=== PATIENT | male | born 1960 | race Caucasian/White ===

== ENCOUNTER 2019-12-29 08:55 | Observation (INO) | payer OTHER ==
[~2019-12-29] VITALS: Ht 177.8 cm; Wt 108.0 kg
--- NOTE | 2019-12-29 09:02 | Emergency Department Note ---
History of Present Illnes History of Present Illness History of Present Illness 59-year-old male arrives to the ED with complaints of left lower quadrant abdominal pain. Patient states pain started today and is unbearable. Patient denies history of this pain in the past. Historian: Patient Onset (how long ago): day(s) Radiation: Reports non-radiation Onset quality: sudden Duration (how long): hour(s) Timing of current episode: constant Progression: worsening Chronicity: new Context: Denies recent illness, Denies trauma/injury Relieving factors: none Associated symptoms: Reports denies other symptoms Past Medical/Family History Physician Review I have reviewed the patient's past medical and family history. Any updates have been documented here. Past Medical History Recent Fever: No Clinical Suspicion of Infectio: No New/Unexplained Change in Ment: No Social History Smoking Cessation: Never Smoker Counseling Performed: No Alcohol Use: Social Any Illegal Drug Use: No Review of Systems Review of Systems Constitutional: Reports no symptoms EENTM: Reports no symptoms Cardiovascular: Reports no symptoms Respiratory: Reports no symptoms Gastrointestinal: Reports as per HPI, Reports abdominal pain Genitourinary: Reports no symptoms Musculoskeletal: Reports no symptoms Integumentary: Reports no symptoms Neurological: Reports no symptoms Psychological: Reports no symptoms Endocrine: Reports no symptoms Hematological/Lymphatic: Reports no symptoms Physical Exam Related Data Allergies: Coded Allergies: codeine (Verified Allergy, Intermediate, FEELING OF HEART ATTACK, 12/29/19) Vital signs reviewed: Yes Physical Exam CONSTITUTIONAL Constitutional: Present well-developed, Present obese, Present ill appearing HENT HENT: Present normocephalic, Present atraumatic, Present oropharynx clear/moist, Present nose normal HENT L/R: Present left ext ear normal, Present right ext ear normal EYES Eyes: Reports PERRL, Reports conjunctivae normal NECK Neck: Present ROM normal PULMONARY Pulmonary: Present effort normal, Present breath sounds normal CARDIOVASCULAR Cardiovascular: Present regular rhythm, Present heart sounds normal, Present capillary refill normal, Present normal rate GASTROINTESTINAL Abdominal: Present soft, Present bowel sounds normal, Present tender GENITOURINARY Genitourinary: Present exam deferred SKIN Skin: Present warm, Present dry MUSCULOSKELETAL Musculoskeletal: Present ROM normal NEUROLOGICAL Neurological: Present alert, Present oriented x 3, Present no gross motor or sensory deficits PSYCHOLOGICAL Psychological: Present mood/affect normal, Present judgement normal Results Laboratory Lab results reviewed: Yes Laboratory comments Laboratory Tests Test 12/29/19 10:00 White Blood Count 5.52 x10e3/uL (4.8-10.8) Red Blood Count 4.95 x10e6/uL (4.3-5.7) Hemoglobin 15.2 g/dL (14.0-18.0) Hematocrit 43.4 % (38.2-49.6) Mean Corpuscular Volume 87.7 fL (81-99) Mean Corpuscular Hemoglobin 30.7 pg (28-32) Mean Corpuscular Hemoglobin Concent 35.0 g/dL (31-35) Red Cell Distribution Width 12.1 % (11.7-14.4) Platelet Count 182 x10e3/uL (140-360) Neutrophils (%) (Auto) 60.1 % (38.7-80.0) Lymphocytes (%) (Auto) 27.5 % (18.0-39.1) Monocytes (%) (Auto) 7.8 % (4.4-11.3) Eosinophils (%) (Auto) 3.3 % (0.0-6.0) Basophils (%) (Auto) 0.9 % (0.0-1.0) Neutrophils # (Auto) 3.3 (2.1-6.9) Lymphocytes # (Auto) 1.5 (1.0-3.2) Monocytes # (Auto) 0.4 (0.2-0.8) Eosinophils # (Auto) 0.2 (0.0-0.4) Basophils # (Auto) 0.1 (0.0-0.1) Absolute Immature Granulocyte (auto 0.02 x10e3/uL (0-0.1) Sodium Level 137 mmol/L (136-145) Potassium Level 3.8 mmol/L (3.5-5.1) Chloride Level 103 mmol/L (98-107) Carbon Dioxide Level 20 mmol/L (22-29) Anion Gap 17.8 mmol/L (8-16) Blood Urea Nitrogen 18 mg/dL (7-26) Creatinine 0.98 mg/dL (0.72-1.25) Estimat Glomerular Filtration Rate > 60 ML/MIN (60-) BUN/Creatinine Ratio 18 (6-25) Glucose Level 95 mg/dL (74-118) Lactic Acid Level 1.7 mmol/L (0.5-2.0) Calcium Level 8.6 mg/dL (8.4-10.2) Total Bilirubin 0.6 mg/dL (0.2-1.2) Aspartate Amino Transf (AST/SGOT) 21 IU/L (5-34) Alanine Aminotransferase (ALT/SGPT) 20 IU/L (0-55) Alkaline Phosphatase 81 IU/L (40-150) Creatine Kinase 404 IU/L (30-200) Creatine Kinase MB 2.00 ng/mL (0-5.0) Troponin I < 0.001 ng/mL (0-0.300) Total Protein 7.2 g/dL (6.5-8.1) Albumin 4.3 g/dL (3.5-5.0) Globulin 2.9 g/dL (2.3-3.5) Albumin/Globulin Ratio 1.5 (0.8-2.0) Lipase 21 U/L (8-78) Imaging Imaging results reviewed: Yes Impressions IMPRESSION: Cholelithiasis with a 9 mm gallstone at the gallbladder neck. No CT evidence of cholecystitis. No additional acute findings in the chest abdomen or pelvis. Scattered 3 to 4 mm right middle lobe pulmonary nodules. If the patient is low risk, no further follow-up imaging as this area. If the patient is high risk, follow-up chest CT in 12 months is optional. Signed by: Marcie Reddy MD on 12/29/2019 12:21 PM Assessment & Plan Medical Decision Making MDM 59-year-old male arrives to the ED with complaints of left lower quadrant abdominal pain that began suddenly. Patient markedly uncomfortable on exam and ill-appearing. Patient require central line placement for IV access. Pt's imaging concerning for acute gustavo- general surg and GI consulted. Assessment & Plan Final Impression: (1) Acute cholecystitis Depart Disposition: HOME, SELF-assisted Meds No Active Prescriptions or Reported Meds JUAN CARLOS MONTIEL DO Dec 29, 2019 09:02
[2019-12-29] MEDS ORDERED: ONDANSETRON HCL INJ 2MG/ML 2ML 2 MG/ML VIAL IV STA (09:09)
[2019-12-29] MEDS ORDERED: SODIUM CHLORIDE 0.9% 1000ML 1,000 ML IV STA (09:09)
[2019-12-29] MEDS ORDERED: MORPHINE SULFATE INJ 4 MG/ML INJ 1ML IV PRN (09:15)
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
[2019-12-29] MEDS ORDERED: FENTANYL CITRATE/PF 100MCG/2 ML INJ IV ONE (10:15)
[2019-12-29 10:17] LABS: BASOPHILS # (AUTO) 0.1 (0.0-0.1); BASOPHILS % 0.9 % (0.0-1.0); EOSINOPHILS # (AUTO) 0.2 (0.0-0.4); EOSINOPHILS % 3.3 % (0.0-6.0); HEMATOCRIT 43.4 % (38.2-49.6); HEMOGLOBIN 15.2 g/dL (14.0-18.0); LYMPHOCYTES # (AUTO) 1.5 (1.0-3.2); LYMPHOCYTES % 27.5 % (18.0-39.1); MEAN CORPUSCULAR HEMOGLOBIN 30.7 pg (28-32); MEAN CORPUSCULAR VOLUME 87.7 fL (81-99); MONOCYTES # (AUTO) 0.4 (0.2-0.8); MONOCYTES % 7.8 % (4.4-11.3); NEUTROPHILS # (AUTO) 3.3 (2.1-6.9); NEUTROPHILS % 60.1 % (38.7-80.0); PLATELET COUNT 182 x10e3/uL (140-360); RED BLOOD COUNT 4.95 x10e6/uL (4.3-5.7); RED CELL DISTRIBUTION WIDTH 12.1 % (11.7-14.4)
[2019-12-29 10:36] LABS: ALANINE AMINOTRANSFERASE 20 IU/L (0-55); ALBUMIN 4.3 g/dL (3.5-5.0); ALBUMIN/GLOBULIN RATIO 1.5 (0.8-2.0); ALKALINE PHOSPHATASE 81 IU/L (40-150); ANION GAP 17.8 mmol/L (8-16); BLOOD UREA NITROGEN 18 mg/dL (7-26); BUN/CREATININE RATIO 18 (6-25); CALCIUM 8.6 mg/dL (8.4-10.2); CARBON DIOXIDE 20 mmol/L (22-29); CHLORIDE 103 mmol/L (98-107); CREATINE KINASE 404 IU/L (30-200); CREATININE, SERUM 0.98 mg/dL (0.72-1.25); EST GLOMERULAR FILTRATION RATE > 60 ML/MIN (60-); GLUCOSE 95 mg/dL (74-118); POTASSIUM 3.8 mmol/L (3.5-5.1); SODIUM 137 mmol/L (136-145)
[2019-12-29] MEDS ORDERED: PIPER-TAZ 3.375 GM 50 ML IV STA (10:43)
--- NOTE | 2019-12-29 12:24 | Diagnostic Imaging Report ---
EXAM: CT Chest, Abdomen and Pelvis WITH intravenous contrast INDICATION: Abdominal pain radiating to chest COMPARISON: None. TECHNIQUE: The chest, abdomen and pelvis were scanned utilizing a multidetector helical scanner from the thoracic inlet to the pubic symphysis following administration of IV contrast. Coronal and sagittal reformations were obtained. Scan was performed during portal venous phase. IV CONTRAST: 100cc Isovue 370 ORAL CONTRAST: Water COMPLICATIONS: None RADIATION DOSE: Total DLP: 1056 mGy*cm Dose modulation, iterative reconstruction, and/or weight based adjustment of the mA/kV was utilized to reduce the radiation dose to as low as reasonably achievable. FINDINGS: LINES/ TUBES: None. LUNGS AND AIRWAYS: The central airways are patent. No focal consolidation or pulmonary edema. Mild dependent subsegmental atelectasis of the right and left lower lobe. Scattered 3 to 4 mm pulmonary nodules in the right middle lobe. PLEURA: The pleural spaces are clear. HEART AND MEDIASTINUM: The thyroid gland is normal. No mediastinal, hilar or axillary lymphadenopathy. The heart is normal in size.. There is no pericardial effusion. HEPATOBILIARY: No focal liver lesions. No biliary ductal dilation. 9 mm gallstone at the gallbladder neck. No CT evidence of cholecystitis. SPLEEN: No splenomegaly. PANCREAS: No focal masses or ductal dilatation. ADRENALS: No adrenal nodules. KIDNEYS/URETERS: No hydronephrosis, stones, or solid mass lesions. PELVIC ORGANS/BLADDER: Unremarkable. PERITONEUM / RETROPERITONEUM: No free air or fluid. LYMPH NODES: No lymphadenopathy. VESSELS: Unremarkable. GI TRACT: No abnormal bowel thickening. No bowel obstruction. Normal appendix. BONES AND SOFT TISSUES: No acute osseous injury. No suspicious lytic or blastic lesions. Grade 1 retrolisthesis at L5-S1. IMPRESSION: Cholelithiasis with a 9 mm gallstone at the gallbladder neck. No CT evidence of cholecystitis. No additional acute findings in the chest abdomen or pelvis. Scattered 3 to 4 mm right middle lobe pulmonary nodules. If the patient is low risk, no further follow-up imaging as this area. If the patient is high risk, follow-up chest CT in 12 months is optional. Signed by: Marcie Reddy MD on 12/29/2019 12:21 PM
[2019-12-29] MEDS ORDERED: KETOROLAC TROMETHAMINE 30 MG/ML VIAL IV STA (12:28)
[2019-12-29] MEDS: HYDROMORPHONE 1MG/1ML INJ IV PRN ×3 (12:53→22:54)
[2019-12-29] MEDS ORDERED: SODIUM CHLORIDE 0.9% 50ML 50 ML ONE (13:59)
[2019-12-29] MEDS ORDERED: IOPAMIDOL 370 MG/ML 200 ML INFUS..BTL INJ ONE (14:00)
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
--- NOTE | 2019-12-29 16:30 | NUR ---
PT TO THE FLOOR FROM ER. VITALS WNL. PT DENIES NEEDS AT THIS TIME.
[2019-12-29 16:45] VITALS: BP 157/79
[2019-12-29] MEDS ORDERED: ACETAMINOPHEN 325 MG TAB PO PRN (17:00)
[2019-12-29] MEDS ORDERED: HYDRALAZINE HCL 20 MG/ML VIAL IV PRN (17:00)
[2019-12-29 17:24] VITALS: BP 156/82
--- NOTE | 2019-12-29 17:36 | NUR ---
CONSULT CALLED TO DR. CARMEN ANSWERING SERVICE. AMANDEEP RECORDED.
[2019-12-29] MEDS: SODIUM CHLORIDE 0.9% 1000ML 1,000 ML IV SCH (18:04)
--- NOTE | 2019-12-29 19:12 | Consultation ---
DATE OF CONSULTATION: 12/29/2019 CHIEF COMPLAINT: Abdominal pain. HISTORY OF PRESENT ILLNESS: The patient is a 59-year-old male with 1-day history of pain in the epigastric regions with some nausea. No vomiting. No fever, chills, or diarrhea. No prior episode of pain. PAST MEDICAL HISTORY: Positive for hypertension and hyperlipidemia. PAST SURGICAL HISTORY: Positive for nasal and foot surgery. ALLERGIES: THE PATIENT HAS ALLERGIC REACTION TO CODEINE. SOCIAL HABITS: He does not smoke or drink. REVIEW OF SYSTEMS: No chest pain, shortness of breath, cough, or fevers. PHYSICAL EXAMINATION: VITAL SIGNS: Stable. He is afebrile. He is awake and alert in moderate discomfort. HEENT: Sclerae anicteric. NECK: Supple. LUNGS: Clear. HEART: Regular rate and rhythm. ABDOMEN: Soft with some guarding in the epigastrium with no rebound. EXTREMITIES: No cyanosis or edema. LABORATORY DATA: White cell count 5.5, hemoglobin of 15, and platelet count 182,000. Creatinine is 0.9. Liver function tests unremarkable. Lipase 21. CT of the abdomen revealed gallstones with 9 mm at the neck. No CT evidence of cholecystitis. ASSESSMENT: Abdominal pain with gallstones, likely cholecystitis. PLAN: HIDA scan will be ordered to confirm cholecystitis. We will follow. Artur Villatoro MD DNJohn/MODL /[id number]
[2019-12-29] MEDS ORDERED: CRESTOR10 MG (19:19)
[2019-12-29] MEDS ORDERED: AMLODIPINE BESYL5 MG PO (19:19)
[2019-12-29 20:00] VITALS: BP 148/88
[2019-12-29] MEDS: ONDANSETRON HCL INJ 2MG/ML 2ML 2 MG/ML VIAL IV PRN (21:30)
[2019-12-30] VITALS (8 sets, daily range): BP systolic 133–152; BP diastolic 78–90
[2019-12-30] MEDS: SODIUM CHLORIDE 0.9% 1000ML 1,000 ML IV SCH ×2 (03:19→21:07)
[2019-12-30] MEDS: HYDROMORPHONE 1MG/1ML INJ IV PRN ×2 (03:56→08:19)
[2019-12-30] MEDS: ONDANSETRON HCL INJ 2MG/ML 2ML 2 MG/ML VIAL IV PRN ×2 (03:57→08:19)
[2019-12-30 06:15] LABS: BASOPHILS % 0.2 % (0.0-1.0); EOSINOPHILS % 0.3 % (0.0-6.0); HEMATOCRIT 42.6 % (38.2-49.6); HEMOGLOBIN 14.6 g/dL (14.0-18.0); LYMPHOCYTES # (AUTO) 0.8 (1.0-3.2); LYMPHOCYTES % 7.3 % (18.0-39.1); MEAN CORPUSCULAR HEMOGLOBIN 30.4 pg (28-32); MEAN CORPUSCULAR HGB CONC 34.3 g/dL (31-35); MEAN CORPUSCULAR VOLUME 88.8 fL (81-99); MONOCYTES # (AUTO) 0.8 (0.2-0.8); MONOCYTES % 8.1 % (4.4-11.3); NEUTROPHILS # (AUTO) 8.6 (2.1-6.9); NEUTROPHILS % 83.7 % (38.7-80.0); PLATELET COUNT 170 x10e3/uL (140-360); RED CELL DISTRIBUTION WIDTH 12.2 % (11.7-14.4)
[2019-12-30 06:47] LABS: ALANINE AMINOTRANSFERASE 101 IU/L (0-55); ALBUMIN/GLOBULIN RATIO 1.5 (0.8-2.0); ALKALINE PHOSPHATASE 95 IU/L (40-150); ANION GAP 14.9 mmol/L (8-16); BLOOD UREA NITROGEN 13 mg/dL (7-26); BUN/CREATININE RATIO 16 (6-25); CALCIUM 8.1 mg/dL (8.4-10.2); CARBON DIOXIDE 22 mmol/L (22-29); CHLORIDE 102 mmol/L (98-107); CREATININE, SERUM 0.81 mg/dL (0.72-1.25); EST GLOMERULAR FILTRATION RATE > 60 ML/MIN (60-); GLUCOSE 104 mg/dL (74-118); POTASSIUM 3.9 mmol/L (3.5-5.1); SODIUM 135 mmol/L (136-145)
--- NOTE | 2019-12-30 07:00 | NUR ---
BEDSIDE SHIFT REPORT RECEIVED FORM THE BRAND STRATEGIST RN. EDUCATED PT ABOUT FALL PRECAUTIONS. PT VERBALIZED UNDERSTANDING. CALL LIGHT WITH IN EASY REACH. INSTRUCTED PT TO USE CALL LIGHT FOR ALL THE NEEDS. BED IS LOW AND LOCKED. SIDE RAILS X2.PT DENIES NEEDS AT THIS TIME.
[2019-12-30] MEDS: FAMOTIDINE 20 MG TAB PO SCH ×2 (07:30→15:40)
[2019-12-30] MEDS ORDERED: PIPER-TAZ 3.375 GM 50 ML IV SCH (12:00)
--- NOTE | 2019-12-30 12:15 | NUR ---
PT OFF UNIT TO NUCLEAR MED FOR PROCEDURE.
[2019-12-30] MEDS ORDERED: DEXAMETHASONE SOD PHOS INJ 4 MG/ML VIAL ONE (12:44)
[2019-12-30] MEDS ORDERED: LIDOCAINE HCL 2% LOCAL INJ 5 ML SDV VIAL INJ ONE (12:44)
[2019-12-30] MEDS ORDERED: ROCURONIUM BROMIDE 10 MG/ML 5ML VIAL IV ONE (12:44)
[2019-12-30] MEDS ORDERED: SEVOFLURANE INHAL SOLN 250 ML PEN BTL ONE (12:44)
[2019-12-30] MEDS ORDERED: GLYCOPYRROLATE INJ 0.2 MG/ML VIAL ONE (12:44)
[2019-12-30] MEDS ORDERED: ONDANSETRON HCL INJ 2MG/ML 2ML 2 MG/ML VIAL ONE (12:44)
[2019-12-30] MEDS ORDERED: NEOSTIGMINE 1 MG/ML 10ML VIAL ONE (12:44)
[2019-12-30] MEDS ORDERED: PROPOFOL IV EMULSION 10 MG/ML 20 ML VIAL ONE ×2 (12:44→18:57)
[2019-12-30] MEDS ORDERED: KETOROLAC TROMETHAMINE 30 MG/ML VIAL ONE (12:44)
[2019-12-30] MEDS ORDERED: SUCCINYLCHOLINE CHLORIDE 20 MG/ML 10ML VIAL ONE (12:44)
[2019-12-30] MEDS ORDERED: FENTANYL CITRATE/PF 100MCG/2 ML INJ ONE (13:31)
[2019-12-30] MEDS ORDERED: MIDAZOLAM HCL 2 MG/2 ML VIAL ONE (13:31)
--- NOTE | 2019-12-30 13:40 | NUR ---
CALL RECEIVED FROM NUCLEAR MED. PT NEED PAIN MED MORPHINE PER NUCLEAR MED RN. PAGED DR. HUNTER PER NUCLEAR MED RN AND CONFIRMED THE ORDER OVER THE PHONE.
[2019-12-30] MEDS ORDERED: MORPHINE SULFATE INJ 4 MG/ML INJ 1ML IV PRN (14:00)
--- NOTE | 2019-12-30 15:00 | NUR ---
PT IS BACK TO THE UNIT AFTER PROCEDURE. PT IS AAOX4. DENIES NEEDS AT THIS TIME.
[2019-12-30] MEDS: PIPER-TAZ 3.375 GM 50 ML IV SCH ×2 (15:59→21:07)
--- NOTE | 2019-12-30 17:00 | NUR ---
PT SIGNED CONSENT FOR THE PROCEDURE. PT DENIED FURTHER NEEDS.
[2019-12-30] MEDS ORDERED: BUPIVACAINE HCL 0.5% INJ 30 ML VIAL INJ ONE (17:10)
--- NOTE | 2019-12-30 17:13 | NUR ---
PT OFF UNIT FOR PROCEDURE IN SAFE CONDITION.
--- NOTE | 2019-12-30 17:48 | Diagnostic Imaging Report ---
HIDA Scan with Morphine Challenge Reason for exam: Biliary calculus Report: Following the administration of 6.6 of Tc-99m mebrofenin, dynamic images of the abdomen in the anterior projection were obtained through 60 minutes. Morphine sulfate 4 mg was administered via slow IV push and additional images were obtained through 30 minutes. Perfusion to the liver is normal. Extraction of tracer by the liver parenchyma is normal. Tracer appears promptly within the biliary tract. Tracer is seen within the small bowel by 14 minutes. The gallbladder does not fill during the initial 60 minutes of dynamic imaging. Following administration of morphine, the gallbladder also does not fill. Impression: Absence of filling of the gallbladder, even following administration of morphine, is compatible with the diagnosis of acute cystic duct obstruction/acute cholecystitis. Signed by: Dr. Lisa Perez M.D. on 12/30/2019 5:44 PM
[2019-12-30] MEDS ORDERED: MORPHINE SULFATE 2 MG/ML SYR 1ML IV PRN ×2 (18:00→20:00)
--- NOTE | 2019-12-30 18:50 | NUR ---
SHIFT REPORT GIVEN TO THE SAFETY DIRECTOR RN. PT IS OFF UNIT FOR PROCEDURE.
[2019-12-30] MEDS ORDERED: GLYCOPYRROLATE 0.2 MG/ML VIAL ONE ×2 (18:57→18:59)
[2019-12-30] MEDS ORDERED: HYDRALAZINE HCL 20 MG/ML VIAL ONE (20:34)
[2019-12-30] MEDS: SIMVASTATIN 20 MG TAB PO SCH (21:07)
[2019-12-31] VITALS (7 sets, daily range): BP systolic 127–140; BP diastolic 55–83
--- NOTE | 2019-12-31 01:39 | Operative Report ---
DATE OF PROCEDURE: 12/30/2019 SURGEON: Artur Villatoro MD PREOPERATIVE DIAGNOSIS: Cholecystitis. POSTOPERATIVE DIAGNOSIS: Cholecystitis. OPERATIVE PROCEDURE: Laparoscopic cholecystectomy. ANESTHESIA: General. INDICATION: The patient is a 59-year-old male with history of abdominal pain in the epigastrium with stone noted in the neck of the gallbladder on ultrasound and CT scan. HIDA scan confirmed cystic duct obstruction. The patient consented for laparoscopic cholecystectomy. Attendant risks discussed. PROCEDURE FINDINGS: Acute cholecystitis. DESCRIPTION OF PROCEDURE: The patient was brought to the OR intubated. Abdomen was prepped with alcohol and draped in sterile fashion. Infraumbilical incision was made. An 11 mm port was inserted. Insufflation began. Under direct vision, other port sites placed in the midepigastric and right upper quadrant. Gallbladder is acutely inflamed and distended. It was decompressed with a needle. Fundus then retracted in cephalad direction. Next, the gallbladder retracted laterally with blunt and sharp dissection. The cystic duct and cystic artery were isolated and triple clipped and divided between clips. Gallbladder detached from the liver and placed in an Endopouch and retrieved out of the peritoneal cavity. Operative field irrigated. Hemostasis achieved. Ports were removed under direct vision. Fascia was closed with 0 Vicryl. Skin was closed with subcuticular stitch. The patient was extubated and transported to recovery room. BLOOD LOSS: 20 mL. Artur Villatoro MD DNL/MODL /[id number]
[2019-12-31] MEDS: PIPER-TAZ 3.375 GM 50 ML IV SCH ×4 (02:55→20:24)
[2019-12-31] MEDS: SODIUM CHLORIDE 0.9% 1000ML 1,000 ML IV SCH ×3 (05:49→20:24)
[2019-12-31 06:03] LABS: BASOPHILS % 0.2 % (0.0-1.0); HEMATOCRIT 42.4 % (38.2-49.6); HEMOGLOBIN 14.3 g/dL (14.0-18.0); LYMPHOCYTES # (AUTO) 0.5 (1.0-3.2); LYMPHOCYTES % 5.1 % (18.0-39.1); MEAN CORPUSCULAR HEMOGLOBIN 30.2 pg (28-32); MEAN CORPUSCULAR HGB CONC 33.7 g/dL (31-35); MEAN CORPUSCULAR VOLUME 89.5 fL (81-99); MONOCYTES # (AUTO) 0.6 (0.2-0.8); MONOCYTES % 6.5 % (4.4-11.3); NEUTROPHILS # (AUTO) 8.4 (2.1-6.9); NEUTROPHILS % 87.7 % (38.7-80.0); PLATELET COUNT 176 x10e3/uL (140-360); RED BLOOD COUNT 4.74 x10e6/uL (4.3-5.7); RED CELL DISTRIBUTION WIDTH 12.6 % (11.7-14.4)
[2019-12-31 06:23] LABS: ALANINE AMINOTRANSFERASE 76 IU/L (0-55); ALBUMIN 3.8 g/dL (3.5-5.0); ALBUMIN/GLOBULIN RATIO 1.3 (0.8-2.0); ALKALINE PHOSPHATASE 83 IU/L (40-150); ANION GAP 18.8 mmol/L (8-16); BLOOD UREA NITROGEN 10 mg/dL (7-26); BUN/CREATININE RATIO 11 (6-25); CALCIUM 8.4 mg/dL (8.4-10.2); CARBON DIOXIDE 21 mmol/L (22-29); CHLORIDE 101 mmol/L (98-107); EST GLOMERULAR FILTRATION RATE > 60 ML/MIN (60-); GLUCOSE 124 mg/dL (74-118); POTASSIUM 3.8 mmol/L (3.5-5.1); SODIUM 137 mmol/L (136-145)
--- NOTE | 2019-12-31 07:00 | NUR ---
BEDSIDE SHIFT REPORT RECEIVED FORM THE CELL STRIPPER RN. EDUCATED PT ABOUT FALL PRECAUTIONS. PT VERBALIZED UNDERSTANDING. CALL LIGHT WITH IN EASY REACH. INSTRUCTED PT TO USE CALL LIGHT FOR ALL THE NEEDS. BED IS LOW AND LOCKED. SIDE RAILS X2. BED ALARM IS ON. PT DENIES NEEDS AT THIS TIME.
[2019-12-31] MEDS: FAMOTIDINE 20 MG TAB PO SCH ×2 (08:00→15:44)
[2019-12-31] MEDS: AMLODIPINE BESYLATE 5 MG TAB PO SCH (08:22)
[2019-12-31] MEDS: MORPHINE SULFATE INJ 4 MG/ML INJ 1ML IV PRN ×4 (08:39→22:05)
[2019-12-31] MEDS ORDERED: SIMVASTATIN 40 MG TAB PO SCH (09:00)
[2019-12-31] MEDS ORDERED: CRESTOR10 MG PO (10:27)
[2019-12-31] MEDS ORDERED: ULTRAM 50MG50 MG PO (10:27)
--- NOTE | 2019-12-31 18:53 | NUR ---
BEDSIDE SHIFT REPORT GIVEN TO THE SUPERVISOR GLUING RN. PT DENIED FURTHER NEEDS.
[2019-12-31] MEDS: SIMVASTATIN 20 MG TAB PO SCH (20:24)
[2019-12-31] MEDS: ONDANSETRON HCL INJ 2MG/ML 2ML 2 MG/ML VIAL IV PRN (22:05)
[2019-12-31] MEDS ORDERED: SIMETHICONE 80 MG CHEW PO STA (23:04)
[2019-12-31] MEDS ORDERED: SIMETHICONE 80 MG CHEW PO PRN (23:15)
[2020-01-01] VITALS: BP 132/78
[2020-01-01] MEDS: PIPER-TAZ 3.375 GM 50 ML IV SCH ×2 (02:41→09:00)
[2020-01-01 04:00] VITALS: BP 126/82
[2020-01-01] MEDS: MORPHINE SULFATE INJ 4 MG/ML INJ 1ML IV PRN ×2 (04:18→09:12)
[2020-01-01] MEDS: ONDANSETRON HCL INJ 2MG/ML 2ML 2 MG/ML VIAL IV PRN ×2 (04:18→09:13)
[2020-01-01 05:37] LABS: BASOPHILS % 0.4 % (0.0-1.0); EOSINOPHILS % 0.5 % (0.0-6.0); HEMATOCRIT 37.9 % (38.2-49.6); HEMOGLOBIN 13.3 g/dL (14.0-18.0); LYMPHOCYTES # (AUTO) 1.1 (1.0-3.2); LYMPHOCYTES % 12.8 % (18.0-39.1); MEAN CORPUSCULAR HEMOGLOBIN 32.8 pg (28-32); MEAN CORPUSCULAR HGB CONC 35.1 g/dL (31-35); MEAN CORPUSCULAR VOLUME 93.3 fL (81-99); MONOCYTES # (AUTO) 0.7 (0.2-0.8); MONOCYTES % 8.7 % (4.4-11.3); NEUTROPHILS # (AUTO) 6.6 (2.1-6.9); NEUTROPHILS % 77.1 % (38.7-80.0); PLATELET COUNT 151 x10e3/uL (140-360); RED BLOOD COUNT 4.06 x10e6/uL (4.3-5.7); RED CELL DISTRIBUTION WIDTH 12.9 % (11.7-14.4)
[2020-01-01 06:04] LABS: ALANINE AMINOTRANSFERASE 60 IU/L (0-55); ALBUMIN 3.5 g/dL (3.5-5.0); ALBUMIN/GLOBULIN RATIO 1.3 (0.8-2.0); ALKALINE PHOSPHATASE 69 IU/L (40-150); ANION GAP 14.8 mmol/L (8-16); BLOOD UREA NITROGEN 10 mg/dL (7-26); BUN/CREATININE RATIO 11 (6-25); CALCIUM 7.9 mg/dL (8.4-10.2); CARBON DIOXIDE 22 mmol/L (22-29); CHLORIDE 103 mmol/L (98-107); CREATININE, SERUM 0.89 mg/dL (0.72-1.25); EST GLOMERULAR FILTRATION RATE > 60 ML/MIN (60-); GLUCOSE 99 mg/dL (74-118); POTASSIUM 3.8 mmol/L (3.5-5.1); SODIUM 136 mmol/L (136-145)
[2020-01-01 08:00] VITALS: BP 132/87
[2020-01-01] MEDS: FAMOTIDINE 20 MG TAB PO SCH (08:40)
[2020-01-01 09:00] VITALS: BP 132/87
[2020-01-01] MEDS: AMLODIPINE BESYLATE 5 MG TAB PO SCH (09:12)
[2020-01-01 12:00] VITALS: BP 122/74
--- NOTE | 2020-01-02 19:32 | Discharge Summary ---
ADMISSION DIAGNOSES: Cholelithiasis, hypertension, hyperlipidemia, rhabdomyolysis, transaminitis, obesity with a BMI of 34.1. DISCHARGE DIAGNOSES: Cholelithiasis, hypertension, hyperlipidemia, rhabdomyolysis, transaminitis, obesity with a BMI of 34.1. Cholecystitis. HISTORY: Hypertension, hyperlipidemia. SURGICAL HISTORY: Nasal septum surgery, right foot surgery. FAMILY HISTORY: The patient's paternal grandmother and grandfather had cancer. SOCIAL HISTORY: Noncontributory. HOSPITAL COURSE: A 59-year-old male admits with complaints of left upper quadrant cramping abdominal pain that began morning. The pain continued to worsen, so he came to the ER. He denies nausea, vomiting, diarrhea, and fever. On admission, CT of the abdomen and pelvis showed cholelithiasis with a 9 mm stone at the gallbladder neck. No CT evidence of cholecystitis. HIDA scan showed absence of filling of the gallbladder, so the patient was taken to the OR and had a laparoscopic cholecystectomy, which showed a gangrenous gallbladder per surgery evaluation. Lab continued to trend down. Blood cultures were negative. After the surgery, the patient's pain is controlled. Initially, he had a JAMAR drain in place due to the gangrenous gallbladder, so he will discharge home with a JAMAR drain and follow up in 1 week to have it removed. He was shown how to care for the JAMAR drain at home. He will follow up with primary care in 1 to [address] Villatoro in 1 week. The patient understands instructions and agrees to plan. Vital signs are stable. The patient is afebrile. Dictated by Alina White NP MD DWIGHT Becerril/OLIVIA /[id number]
== END 2020-01-01 13:10 | disposition home or self-care (01) ==
LOC: ER 09:15 → ERHOLD 12:33 → MED/SURG 16:03
PROVIDERS: ADMIT Internal Medicine; ATTEND Internal Medicine
DX: K80.00 Calculus of gallbladder with acute cholecystitis without obstruction (principal); I10 Essential (primary) hypertension; E78.5 Hyperlipidemia, unspecified; Z80.9 Family history of malignant neoplasm, unspecified; Z88.5 Allergy status to narcotic agent; E66.9 Obesity, unspecified; Z68.34 Body mass index [BMI] 34.0-34.9, adult; M62.82 Rhabdomyolysis; R74.0 Nonspecific elevation of levels of transaminase and lactic acid dehydrogenase [LDH]; Z01.812 Encounter for preprocedural laboratory examination
CPT/HCPCS: 36415 ×4; 47562; 71260; 74177; 78227; 80053 ×4; 82550 ×3; 82553; 83605; 83690; 84484; 85025 ×4; 87040; 88304; 99284; A9537; G0378 ×4; J0330; J0360; J1100; J1170 ×2; J1885 ×2; J2001; J2270 ×4; J2405 ×4; J2543 ×4; J2704; J2710; J3010; J7030 ×3; Q9967; U0002; J2250